=== PATIENT | female | born 1990 | race African-American/Black ===

== ENCOUNTER 2017-02-17 22:43 | Emergency (ER) | payer OTHER ==
[~2017-02-17] VITALS: Ht 157.5 cm; Wt 59.0 kg
[~2017-02-17 22:43] MED LIST: APAP500; BACTRIM DS TAB1 EACH PO; CIPRO250 M1 PO; CIPROFLOXACIN500 M1 PO; HYDROXYCHLOROQ200 M1 PO; KEFLEX500 MG PO; NAPROSYN500 MG PO; NIFEDIPINE10 MG PO; NORCO 5-325 TA1 EACH PO; NORVASC5 MG PO; PERCOCET 5-3251 EACH PO; PROCARDIA10 MG PO; RIFAMPIN 300 M300 M1 PO; VITAMIN D1000 UNI1
[2017-02-17 23:02] LABS: URINE BILIRUBIN NEGATIVE (Negative); URINE BLOOD NEGATIVE (Negative); URINE COLOR YELLOW; URINE GLUCOSE-RANDOM* NEGATIVE (Negative); URINE KETONES NEGATIVE (Negative); URINE LEUKOCYTES-REFLEX 1+ (Negative); URINE PROTEIN (DIPSTICK) TRACE (Negative); URINE SPECIFIC GRAVITY 1.025 (1.003-1.035)
[2017-02-17 23:11] LABS: CASTS None Seen /LPF (None Seen); CRYSTALS None Seen /LPF (None Seen); SQUAMOUS 4-10 Moderate /LPF (0-3); URINE RBC 3-10 Few /HPF (0-2); URINE WBC-REFLEX 6-15 Few /HPF (0-5)
[2017-02-17 23:48] LABS: ABSOLUTE NEUTROPHILS 6.4 thou/uL (1.4-8.2); EOSINOPHILS 0.9 % (0.0-3.0); HEMATOCRIT 31.4 % (37.0-47.0); HEMOGLOBIN 10.4 gm/dL (12.0-15.0); LYMPHOCYTES 19.2 % (24.0-44.0); MCH 27.3 pg (26.0-34.0); MCV 82.6 fL (80.0-100.0); MONOCYTES 10.6 % (1.0-8.0); PLATELET COUNT 335 thou/uL (150-400); POLYS 68.3 % (36.0-66.0); RBC 3.81 mil/uL (4.20-5.00); RDW 15.2 % (10.5-14.5); WBC 9.4 thou/uL (4.0-11.0)
[2017-02-17 23:49] LABS: MANUAL DIFF NO
[2017-02-17 23:53] LABS: CALCIUM 8.7 mg/dL (8.5-10.1); CREATININE 0.8 mg/dL (0.6-1.0); POTASSIUM 3.5 mmol/L (3.5-5.1)
[2017-02-17 23:59] LABS: ALBUMIN 3.5 g/dL (3.4-5.0); TOTAL BILIRUBIN 0.2 mg/dL (<0.1-1.0); TOTAL PROTEIN 7.5 g/dL (6.4-8.2)
[2017-02-18] MEDS ORDERED: KEFLEX500 MG PO (00:37)
[2017-02-18] MEDS ORDERED: ZOFRAN ODT4 MG PO (00:37)
[2017-02-18] MEDS ORDERED: ULTRAM 50MG TAB50 MG PO (00:37)
== END 2017-02-18 01:00 | disposition home or self-care (01) ==
LOC: ER 22:43
PROVIDERS: Emergency Medicine
DX: N39.0 Urinary tract infection, site not specified (principal); F10.99 Alcohol use, unspecified with unspecified alcohol-induced disorder

== ENCOUNTER 2017-11-07 17:50 | Emergency (ER) | payer OTHER ==
[~2017-11-07] VITALS: Ht 157.5 cm; Wt 59.0 kg
[~2017-11-07 17:50] MED LIST changes: +CRANBERRY200 MG PO; +MUCINEX1200 MG PO; +TESSALON PERLE100 MG PO; +ULTRAM 50MG TAB50 MG PO; +UNICOMPLEX M TA1 TA1 PO; +ZOFRAN ODT4 MG PO; +ZPAK PO
[2017-11-07] MEDS ORDERED: NORCO 5-325 TA1 EACH PO (19:44)
== END 2017-11-07 20:10 | disposition home or self-care (01) ==
LOC: ER 17:50
DX: S05.12XA Contusion of eyeball and orbital tissues, left eye, initial encounter (principal); S60.041A Contusion of right ring finger without damage to nail, initial encounter; H11.33 Conjunctival hemorrhage, bilateral; M32.9 Systemic lupus erythematosus, unspecified; Y04.8XXA Assault by other bodily force, initial encounter; Y93.89 Activity, other specified; Y92.89 Other specified places as the place of occurrence of the external cause; Y99.8 Other external cause status

== ENCOUNTER 2019-02-26 10:07 | Emergency (ER) | payer OTHER ==
[~2019-02-26] VITALS: Ht 157.5 cm; Wt 57.1 kg
[2019-02-26] MEDS ORDERED: KEFLEX500 M1 PO (11:12)
[2019-02-26 11:37] VITALS: BP 139/89
== END 2019-02-26 11:39 | disposition home or self-care (01) ==
LOC: ER 10:07
DX: S60.422A Blister (nonthermal) of right middle finger, initial encounter (principal); S60.424A Blister (nonthermal) of right ring finger, initial encounter; I73.00 Raynaud's syndrome without gangrene; M32.9 Systemic lupus erythematosus, unspecified; X58.XXXA Exposure to other specified factors, initial encounter; Y93.89 Activity, other specified; Y92.89 Other specified places as the place of occurrence of the external cause; Y99.0 Civilian activity done for income or pay

== ENCOUNTER 2019-03-06 13:37 | Emergency (ER) | payer OTHER ==
[~2019-03-06] VITALS: Ht 157.5 cm; Wt 73.5 kg
[~2019-03-06 13:37] MED LIST changes: +KEFLEX500 M1 PO
[2019-03-06 13:38] VITALS: BP 111/59
== END 2019-03-06 14:40 | disposition home or self-care (01) ==
LOC: ER 13:37
DX: I73.00 Raynaud's syndrome without gangrene (principal); M79.645 Pain in left finger(s); M32.9 Systemic lupus erythematosus, unspecified

== ENCOUNTER 2020-02-23 16:21 | Emergency (ER) | payer OTHER ==
[~2020-02-23] VITALS: Ht 157.5 cm; Wt 57.1 kg
[2020-02-23 16:22] VITALS: BP 109/40
[2020-02-23] MEDS ORDERED: BACTRIM DS TAB1 EACH PO (16:52)
[2020-02-23] MEDS ORDERED: CENTANY30 GM TOP (16:52)
== END 2020-02-23 17:08 | disposition home or self-care (01) ==
LOC: ER 16:21
DX: L03.011 Cellulitis of right finger (principal); Z79.899 Other long term (current) drug therapy; Z79.2 Long term (current) use of antibiotics

== ENCOUNTER 2020-03-06 18:34 | Emergency (ER) | payer OTHER ==
[~2020-03-06] VITALS: Ht 157.5 cm; Wt 56.7 kg
[~2020-03-06 18:34] MED LIST changes: +CENTANY30 GM TOP
[2020-03-07] MEDS ORDERED: BACTRIM DS TAB1 EACH PO (00:38)
[2020-03-07 01:09] VITALS: BP 102/62
== END 2020-03-07 01:10 | disposition home or self-care (01) ==
LOC: ER 18:34
DX: L03.011 Cellulitis of right finger (principal); Z79.2 Long term (current) use of antibiotics; Z79.899 Other long term (current) drug therapy; Z98.890 Other specified postprocedural states

== ENCOUNTER 2020-04-20 01:25 | Emergency (ER) | payer OTHER ==
[~2020-04-20] VITALS: Ht 157.5 cm; Wt 58.1 kg
[2020-04-20] MEDS ORDERED: AMLODIPINE BESY10 MG PO (01:37)
[2020-04-20 02:51] LABS: URINE BILIRUBIN NEGATIVE (Negative); URINE BLOOD NEGATIVE (Negative); URINE CLARITY CLEAR; URINE COLOR YELLOW; URINE GLUCOSE-RANDOM* NEGATIVE (Negative); URINE KETONES NEGATIVE (Negative); URINE LEUKOCYTES-REFLEX 1+ (Negative); URINE NITRITE-REFLEX NEGATIVE (Negative); URINE PROTEIN (DIPSTICK) NEGATIVE (Negative); URINE SPECIFIC GRAVITY 1.025 (1.005-1.035); URINE UROBILINOGEN 0.2 E.U./dl (0.2-1.0)
[2020-04-20 03:05] LABS: CASTS None Seen /LPF (None Seen); CRYSTALS None Seen /LPF (None Seen); MUCUS 0-3 Light strn/LPF (None Seen); SQUAMOUS 4-10 Moderate /LPF (0-3); URINE RBC 0-2 Rare /HPF (0-2); URINE WBC-REFLEX 6-15 Few /HPF (0-5)
[2020-04-20 03:13] LABS: ABSOLUTE NEUTROPHILS 7.3 thou/uL (1.4-8.2); BASOPHILS 0.9 % (0.0-2.0); EOSINOPHILS 0.3 % (0.0-3.0); HEMATOCRIT 35.2 % (37.0-47.0); HEMOGLOBIN 11.4 gm/dL (12.0-15.0); MCHC 32.3 g/dL (28.0-37.0); MCV 86.7 fL (80.0-100.0); MONOCYTES 7.2 % (1.0-8.0); PLATELET COUNT 270 thou/uL (150-400); POLYS 76.6 % (36.0-66.0); RBC 4.05 mil/uL (4.20-5.00); RDW 15.4 % (10.5-14.5); WBC 9.5 thou/uL (4.0-11.0)
[2020-04-20 03:17] LABS: CALCIUM 9.4 mg/dL (8.5-10.1); CREATININE 0.8 mg/dL (0.6-1.0); POTASSIUM 3.5 mmol/L (3.5-5.1)
[2020-04-20] MEDS ORDERED: KEFLEX500 M1 PO (04:36)
[2020-04-20] MEDS ORDERED: DOXYCYCLINE 10100 MG PO (04:36)
[2020-04-20 05:00] VITALS: BP 100/63
== END 2020-04-20 05:01 | disposition home or self-care (01) ==
LOC: ER 01:25
PROVIDERS: Emergency Medicine
DX: N39.0 Urinary tract infection, site not specified (principal); Z79.899 Other long term (current) drug therapy